=== PATIENT | male | born 1940 | race Caucasian/White ===

== ENCOUNTER 2024-04-02 19:08 | Inpatient (IN) ==
[2024-04-02 20:17] LABS: INR 1.4 (0.9-1.1); Prothrombin Time 17.9 sec (11.9-14.5)
[2024-04-02 20:19] LABS: Basophils # (Auto) 0.06 K/mcL (0.00-0.30); Basophils % (Auto) 0.4 % (0.0-2.0); Eosinophils # (Auto) 0.27 K/mcL (0.00-0.70); Eosinophils % (Auto) 1.8 % (0.0-7.0); Hematocrit 21.5 % (40.1-51.0); Hemoglobin 6.8 g/dL (13.7-17.5); Lymphocytes % (Auto) 20.5 % (15.5-49.0); Mean Corpuscular HGB Conc 31.6 g/dL (31.0-36.0); Mean Platelet Volume 10.3 fL (8.8-12.5); Monocytes # (Auto) 1.59 K/mcL (0.10-0.90); Monocytes % (Auto) 10.9 % (1.0-12.0); Neutrophils % (Auto) 64.4 % (38.0-78.0); Platelet Count 289 K/mcL (140-440); RBC 2.24 M/mcL (4.63-6.08); Red Cell Distribution Width 15.6 % (11.5-14.5); WBC 14.6 K/mcL (4.5-11.0)
[2024-04-02 20:26] LABS: Blood Urea Nitrogen 28 mg/dL (8-23); Carbon Dioxide 22 mmol/L (22-30); Chloride 98 mmol/L (96-108); Glomerular Filtration Rate 38; Glucose 197 mg/dL (70-105); Potassium 4.2 mmol/L (3.3-5.1); Sodium 132 mmol/L (133-145)
[2024-04-02 20:48] LABS: Appearance,Urine CLOUDY (Clear); Bilirubin,Urine Negative (Negative); Color,Urine RED; Glucose,Urine (UA) 150 mg/dL (Negative); Ketones,Urine Negative (Negative); Leukocyte Esterase,Urine 75 /uL (Negative); Nitrate,Urine Negative (Negative); Protein,Urine 100 mg/dL (Negative); Specific Gravity,Urine 1.006 (1.000-1.035); Urine RBC > 182 /hpf (0-1); Urine Squamous Epithelial Cell 0 /hpf (0-4); Urine WBC > 182 /hpf (0-4); Urobilinogen,Urine Negative
[2024-04-02] MEDS: LEVOFLOXACIN 500 MG/100 ML BAG IV ONE (22:06)
[2024-04-02] MEDS ORDERED: POTASSIUM CHLORIDE 20 MEQ TABLET PO PRN ×2 (22:48)
[2024-04-02] MEDS ORDERED: ONDANSETRON 4 MG/2 ML VIAL IV PRN (22:48)
[2024-04-02] MEDS ORDERED: IPRATROPIUM/ALBUTEROL 3 ML AMPUL.NEB NEB PRN (22:48)
[2024-04-02] MEDS ORDERED: LABETALOL HCL 20 MG/4 ML VIAL IV PRN (22:48)
[2024-04-02] MEDS ORDERED: DEXTROSE 31 GM ORAL.SUSP PO PRN (22:48)
[2024-04-02] MEDS ORDERED: ACETAMINOPHEN 160 MG/5 ML ORAL.SOL PO PRN (22:48)
[2024-04-02] MEDS ORDERED: METOCLOPRAMIDE 10 MG/2 ML VIAL IV PRN (22:48)
[2024-04-02] MEDS ORDERED: METOPROLOL TARTRATE 5 MG/5 ML VIAL IV PRN (22:48)
[2024-04-02] MEDS ORDERED: POTASSIUM CHLORIDE 40 MEQ in DEXTROSE 5% IN WATER 500 ML IV PRN (22:48)
[2024-04-02] MEDS ORDERED: DEXTROSE 50% 50 ML VIAL IV PRN (22:48)
[2024-04-02] MEDS ORDERED: SENNOSIDES 1 TABLET PO PRN (22:48)
[2024-04-02] MEDS ORDERED: MAGNESIUM SULFATE 2 GM/50 ML BAG IV PRN (22:48)
[2024-04-02] MEDS: 0.9 % SODIUM CHLORIDE 250 ML IV SCH (23:10)
[2024-04-03] MEDS: LEVOFLOXACIN 250 MG/50 ML BAG IV ONE (00:30)
[2024-04-03] MEDS: 0.9 % SODIUM CHLORIDE 750 ML IV ONE (00:31)
[2024-04-03] MEDS: ACETAMINOPHEN 325 MG TABLET PO PRN (01:29)
[2024-04-03] MEDS: ACETAMINOPHEN 325 MG TABLET PO ONE (02:42)
[2024-04-03 06:13] LABS: Basophils # (Auto) 0.05 K/mcL (0.00-0.30); Basophils % (Auto) 0.4 % (0.0-2.0); Eosinophils # (Auto) 0.26 K/mcL (0.00-0.70); Eosinophils % (Auto) 2.3 % (0.0-7.0); Hematocrit 26.3 % (40.1-51.0); Hemoglobin 8.5 g/dL (13.7-17.5); Lymphocytes # (Auto) 1.97 K/mcL (1.50-4.80); Lymphocytes % (Auto) 17.2 % (15.5-49.0); Mean Cell Volume 92.3 fL (80.0-100.0); Mean Corpuscular HGB Conc 32.3 g/dL (31.0-36.0); Mean Platelet Volume 10.2 fL (8.8-12.5); Monocytes # (Auto) 1.35 K/mcL (0.10-0.90); Monocytes % (Auto) 11.8 % (1.0-12.0); Platelet Count 245 K/mcL (140-440); RBC 2.85 M/mcL (4.63-6.08); Red Cell Distribution Width 15.7 % (11.5-14.5); WBC 11.4 K/mcL (4.5-11.0)
[2024-04-03 06:20] LABS: ALT/SGPT 7 U/L (<40); AST/SGOT 17 U/L (<40); Albumin 2.6 gm/dL (3.2-5.2); Alkaline Phosphatase 46 U/L (39-117); Bilirubin,Direct 0.4 mg/dL (<0.3); Bilirubin,Total 1.2 mg/dL (0.1-1.0); Blood Urea Nitrogen 25 mg/dL (8-23); Calcium 7.7 mg/dL (8.6-10.4); Carbon Dioxide 21 mmol/L (22-30); Chloride 101 mmol/L (96-108); Globulin 2.5 gm/dL (2.2-3.7); Glomerular Filtration Rate 45; Glucose 107 mg/dL (70-105); Lactate Dehydrogenase 179 U/L (135-225); Phosphorous 2.1 mg/dL (2.5-4.5); Potassium 4.2 mmol/L (3.3-5.1); Sodium 131 mmol/L (133-145); Triglycerides 98 mg/dL (<150); Uric Acid 5.5 mg/dL (2.5-8.0)
[2024-04-03] MEDS ORDERED: BISACODYL 10 MG SUPP.RECT PR PRN (07:46)
[2024-04-03] MEDS ORDERED: FLEETS ADULT 1 DOSE ENEMA PR PRN (07:46)
[2024-04-03] MEDS ORDERED: PROCHLORPERAZINE 10 MG/2 ML VIAL IV PRN (07:57)
[2024-04-03] MEDS: INSULIN LISPRO 1 UNIT/0.01 ML UNIT SQ SCH (08:01)
[2024-04-03] MEDS ORDERED: HYOSCYAMINE SULFATE 0.125 MG TABLET SL PRN (08:01)
[2024-04-03] MEDS ORDERED: PROPOFOL 200 MG/20 ML VIAL IV ONE (09:19)
[2024-04-03] MEDS ORDERED: ROCURONIUM 10 MG/ML ML IV ONE (09:19)
[2024-04-03] MEDS ORDERED: KETAMINE 50 MG/ML Syringe IV ONE (09:19)
[2024-04-03] MEDS ORDERED: DEXAMETHASONE 10 MG/ML VIAL ONE (09:19)
[2024-04-03] MEDS ORDERED: ONDANSETRON 4 MG/2 ML VIAL ONE (09:19)
[2024-04-03] MEDS ORDERED: LIDOCAINE 2% PF 5 ML VIAL ONE (09:19)
[2024-04-03] MEDS ORDERED: IOPAMIDOL 100 ML BOTTLE IV ONE (09:22)
[2024-04-03] MEDS ORDERED: PHENYLephrine 1 MG/10 ML SYRINGE (ANEST) ONE (10:01)
[2024-04-03] MEDS ORDERED: SUGAMMADEX SODIUM 200 MG/2 ML VIAL IV ONE (10:27)
[2024-04-03] MEDS ORDERED: MEPERIDINE 25 MG/ML VIAL IV PRN (10:27)
[2024-04-03] MEDS ORDERED: diphenhydrAMINE 50 MG/ML VIAL IV PRN (10:27)
[2024-04-03] MEDS ORDERED: LACTATED RINGERS 250 ML IV PRN (10:27)
[2024-04-03] MEDS ORDERED: IPRATROPIUM/ALBUTEROL 3 ML AMPUL.NEB NEB PRN (10:27)
[2024-04-03] MEDS ORDERED: NALOXONE HCL 0.4 MG/ML VIAL IV PRN (10:27)
[2024-04-03] MEDS: LIDOCAINE 2% URO-JET 10 ML JEL.PF.APP UR ONE (10:47)
[2024-04-03] MEDS: ACETAMINOPHEN 1,000 MG/100 ML BAG IV ONE (10:55)
[2024-04-03] MEDS: fentaNYL 100 MCG/2 ML VIAL IV PRN ×2 (11:00→11:47)
[2024-04-03] MEDS ORDERED: HYDROcodone/APAP 5/325MG TABLET PO PRN (11:39)
[2024-04-03] MEDS: FLUCONAZOLE 100 MG TABLET PO SCH (11:55)
[2024-04-03] MEDS: ESCITALOPRAM 10 MG TABLET PO SCH (11:57)
[2024-04-03] MEDS: ATORVASTATIN 40 MG TABLET PO SCH (11:58)
[2024-04-03] MEDS: FINASTERIDE 5 MG TABLET PO SCH (11:58)
[2024-04-03] MEDS: amLODIPine 5 MG TABLET PO SCH (11:59)
[2024-04-03] MEDS: LOSARTAN 50 MG TABLET PO SCH (12:00)
[2024-04-03] MEDS: LEVOTHYROXINE 100 MCG TABLET PO SCH (12:23)
[2024-04-03] MEDS: PANTOPRAZOLE 40 MG TABLET PO SCH (12:23)
[2024-04-03] MEDS: DOCUSATE SODIUM 100 MG CAPSULE PO SCH (12:23)
[2024-04-03] MEDS: TAMSULOSIN 0.4 MG CAPSULE PO SCH (20:22)
[2024-04-03] MEDS: 0.9 % SODIUM CHLORIDE 10 ML SYRINGE IV SCH (20:25)
[2024-04-03] MEDS ORDERED: 0.9 % SODIUM CHLORIDE 750 ML IV ONE (23:55)
[2024-04-04 06:01] LABS: Basophils # (Auto) 0.02 K/mcL (0.00-0.30); Basophils % (Auto) 0.2 % (0.0-2.0); Eosinophils # (Auto) 0 K/mcL (0.00-0.70); Eosinophils % (Auto) 0 % (0.0-7.0); Hematocrit 22.8 % (40.1-51.0); Hemoglobin 7.8 g/dL (13.7-17.5); Lymphocytes # (Auto) 1.72 K/mcL (1.50-4.80); Lymphocytes % (Auto) 14.6 % (15.5-49.0); Mean Corpuscular HGB Conc 34.2 g/dL (31.0-36.0); Mean Platelet Volume 10.1 fL (8.8-12.5); Monocytes # (Auto) 0.47 K/mcL (0.10-0.90); Neutrophils % (Auto) 78.9 % (38.0-78.0); Platelet Count 260 K/mcL (140-440); RBC 2.65 M/mcL (4.63-6.08); Red Cell Distribution Width 15.6 % (11.5-14.5); WBC 11.8 K/mcL (4.5-11.0)
[2024-04-04 06:38] LABS: ALT/SGPT 10 U/L (<40); AST/SGOT 15 U/L (<40); Albumin 2.6 gm/dL (3.2-5.2); Alkaline Phosphatase 61 U/L (39-117); Bilirubin,Direct < 0.2 mg/dL (0-0.3); Bilirubin,Total 0.3 mg/dL (0.1-1.0); Blood Urea Nitrogen 23 mg/dL (8-23); Calcium 7.6 mg/dL (8.6-10.4); Carbon Dioxide 21 mmol/L (22-30); Chloride 99 mmol/L (96-108); Globulin 2.7 gm/dL (2.2-3.7); Glomerular Filtration Rate 54; Glucose 189 mg/dL (70-105); Lactate Dehydrogenase 173 U/L (135-225); Potassium 4.7 mmol/L (3.3-5.1); Sodium 129 mmol/L (133-145); Triglycerides 78 mg/dL (<150); Uric Acid 4.9 mg/dL (2.5-8.0)
[2024-04-04] MEDS ORDERED: SODIUM CHLORIDE 1 GM TABLET PO SCH (09:00)
[2024-04-04] MEDS ORDERED: LEVOFLOXACIN 500 MG/100 ML BAG IV SCH (09:00)
[2024-04-04] MEDS: SODIUM CHLORIDE 1 GM TABLET PO SCH (09:10)
[2024-04-04] MEDS: LEVOFLOXACIN 750 MG/150 ML BAG IV SCH (10:26)
[2024-04-04] MEDS: MELATONIN 3 MG TABLET PO SCH (18:52)
[2024-04-04] MEDS: diphenhydrAMINE 25 MG CAPSULE PO PRN (20:25)
[2024-04-04] MEDS: LACTATED RINGERS 1,000 ML IV SCH (20:47)
[2024-04-05 05:58] LABS: Basophils # (Auto) 0.02 K/mcL (0.00-0.30); Basophils % (Auto) 0.1 % (0.0-2.0); Eosinophils # (Auto) 0.05 K/mcL (0.00-0.70); Eosinophils % (Auto) 0.3 % (0.0-7.0); Hematocrit 22.7 % (40.1-51.0); Hemoglobin 7.8 g/dL (13.7-17.5); Lymphocytes # (Auto) 2.85 K/mcL (1.50-4.80); Lymphocytes % (Auto) 19.5 % (15.5-49.0); Mean Cell Volume 87.3 fL (80.0-100.0); Mean Corpuscular HGB Conc 34.4 g/dL (31.0-36.0); Monocytes # (Auto) 1.14 K/mcL (0.10-0.90); Monocytes % (Auto) 7.8 % (1.0-12.0); Neutrophils % (Auto) 68.6 % (38.0-78.0); Platelet Count 262 K/mcL (140-440); Red Cell Distribution Width 15.6 % (11.5-14.5); WBC 14.6 K/mcL (4.5-11.0)
[2024-04-05 06:20] LABS: ALT/SGPT 9 U/L (<40); AST/SGOT 20 U/L (<40); Albumin 2.6 gm/dL (3.2-5.2); Alkaline Phosphatase 46 U/L (39-117); Bilirubin,Direct < 0.2 mg/dL (0-0.3); Bilirubin,Total 0.2 mg/dL (0.1-1.0); Blood Urea Nitrogen 28 mg/dL (8-23); Calcium 7.6 mg/dL (8.6-10.4); Carbon Dioxide 22 mmol/L (22-30); Chloride 100 mmol/L (96-108); Globulin 2.6 gm/dL (2.2-3.7); Glomerular Filtration Rate 49; Glucose 130 mg/dL (70-105); Lactate Dehydrogenase 185 U/L (135-225); Phosphorous 2.5 mg/dL (2.5-4.5); Potassium 4.8 mmol/L (3.3-5.1); Sodium 131 mmol/L (133-145); Triglycerides 62 mg/dL (<150); Uric Acid 4.9 mg/dL (2.5-8.0)
[2024-04-05] MEDS: POLYETHYLENE GLYCOL 3350 17 GM PACKET PO PRN (08:03)
[2024-04-05 10:23] LABS: Hematocrit 24.6 % (40.1-51.0); Hemoglobin 8.3 g/dL (13.7-17.5)
[2024-04-06 05:51] LABS: Basophils # (Auto) 0.06 K/mcL (0.00-0.30); Basophils % (Auto) 0.4 % (0.0-2.0); Eosinophils # (Auto) 0.81 K/mcL (0.00-0.70); Eosinophils % (Auto) 5.3 % (0.0-7.0); Hemoglobin 8.4 g/dL (13.7-17.5); Lymphocytes # (Auto) 4.23 K/mcL (1.50-4.80); Lymphocytes % (Auto) 27.6 % (15.5-49.0); Mean Cell Volume 88.7 fL (80.0-100.0); Mean Corpuscular HGB Conc 33.6 g/dL (31.0-36.0); Monocytes # (Auto) 1.56 K/mcL (0.10-0.90); Monocytes % (Auto) 10.2 % (1.0-12.0); Neutrophils % (Auto) 49.4 % (38.0-78.0); Platelet Count 282 K/mcL (140-440); RBC 2.82 M/mcL (4.63-6.08); Red Cell Distribution Width 15.6 % (11.5-14.5); WBC 15.4 K/mcL (4.5-11.0)
[2024-04-06 06:26] LABS: ALT/SGPT 11 U/L (<40); AST/SGOT 24 U/L (<40); Albumin 2.7 gm/dL (3.2-5.2); Alkaline Phosphatase 49 U/L (39-117); Bilirubin,Direct < 0.2 mg/dL (0-0.3); Bilirubin,Total 0.3 mg/dL (0.1-1.0); Blood Urea Nitrogen 33 mg/dL (8-23); Calcium 7.7 mg/dL (8.6-10.4); Carbon Dioxide 23 mmol/L (22-30); Chloride 100 mmol/L (96-108); Globulin 2.6 gm/dL (2.2-3.7); Glomerular Filtration Rate 45; Glucose 105 mg/dL (70-105); Lactate Dehydrogenase 173 U/L (135-225); Phosphorous 2.9 mg/dL (2.5-4.5); Potassium 4.7 mmol/L (3.3-5.1); Sodium 132 mmol/L (133-145); Triglycerides 71 mg/dL (<150); Uric Acid 4.9 mg/dL (2.5-8.0)
== END 2024-04-06 13:37 | DRG 717 ==
LOC: ED 19:08 → ICU 22:35
PROVIDERS: ADMIT Internal Medicine; ATTEND Internal Medicine